=== PATIENT | female | born 1980 | race African-American/Black ===

== ENCOUNTER 2016-10-02 19:57 | Observation (INO) | payer MEDICAID ==
[~2016-10-02] VITALS: Ht 172.7 cm; Wt 65.0 kg
[2016-10-02 20:51] LABS: DAU SCREEN DISCLAIMER
[2016-10-02 21:00] LABS: BLOOD UREA NITROGEN 9 mg/dL (7-18)
[2016-10-02 21:06] LABS: ACETAMINOPHEN < 2 mcg/mL (10-30)
[2016-10-02] MEDS ORDERED: OLANZAPINE 10 MG TABLET PO ONE (22:30)
[2016-10-02] MEDS ORDERED: LORazepam 1MG TABLET PO ONE (22:30)
[2016-10-02] MEDS ORDERED: LORazepam 1MG TABLET ONE (22:39)
[2016-10-02] MEDS ORDERED: POTASSIUM CHLORIDE 20 MEQ TAB.ER.PRT ONE (22:42)
[2016-10-02] MEDS: POTASSIUM CHLORIDE 20 MEQ TAB.ER.PRT PO ONE ×2 (22:43→22:54)
[2016-10-02] MEDS ORDERED: OLANZAPINE 10 MG TABLET PO PRN (23:00)
[2016-10-02] MEDS ORDERED: TRAZODONE 100MG TABLET PO PRN (23:00)
[2016-10-02] MEDS ORDERED: ACETAMINOPHEN 325 MG TABLET PO PRN (23:00)
[2016-10-02 23:40] VITALS: BP 114/75
[2016-10-03 07:35] VITALS: BP 120/70
[2016-10-03] MEDS: PALIPERIDONE 6 MG TAB.ER.24 PO SCH (09:42)
[2016-10-03 19:49] VITALS: BP 112/71
[2016-10-03] MEDS: PANTOPROZOLE 40MG TABLET PO SCH (21:08)
[2016-10-03] MEDS ORDERED: ALBUTEROL SULFATE 2.5 MG/3 ML NPPB PRN (23:00)
[2016-10-04 07:59] VITALS: BP 103/68
[2016-10-04] MEDS: PALIPERIDONE 6 MG TAB.ER.24 PO SCH (08:10)
[2016-10-04] MEDS ORDERED: OLANZAPINE 5 MG TABLET ONE (14:21)
[2016-10-04] MEDS ORDERED: ONDANSETRON ODT 4 MG PO PRN (16:00)
[2016-10-04 19:37] VITALS: BP 107/65
[2016-10-04] MEDS: PANTOPROZOLE 40MG TABLET PO SCH (20:28)
[2016-10-05 08:00] VITALS: BP 97/58
[2016-10-05] MEDS: PALIPERIDONE 6 MG TAB.ER.24 PO SCH (08:57)
[2016-10-05] MEDS ORDERED: LORATADINE 10 MG TABLET PO PRN (10:30)
[2016-10-05] MEDS ORDERED: LORazepam 1MG TABLET PO PRN (12:30)
[2016-10-05 14:35] LABS: BLOOD UREA NITROGEN 11 mg/dL (7-18)
[2016-10-05] MEDS ORDERED: PALI6TAB5 PO (14:47)
== END 2016-10-05 15:40 ==
LOC: ED 22:18 → EDIP 22:19 → ED 22:30 → SUATTDRO 22:37 → 3E 23:41
DX: F20.9 Schizophrenia, unspecified (principal); F23 Brief psychotic disorder; E87.6 Hypokalemia; F43.10 Post-traumatic stress disorder, unspecified; J44.9 Chronic obstructive pulmonary disease, unspecified; F15.10 Other stimulant abuse, uncomplicated; F22 Delusional disorders; Z91.5 Personal history of self-harm
CPT/HCPCS: 36415; 80048; 80307; 80329; 81001; 82040; 84443; 84703; 85025; 87086; 99285; G0378; G0480

== ENCOUNTER 2016-10-13 12:19 | Emergency (ER) | payer MEDICAID ==
[~2016-10-13] VITALS: Ht 167.6 cm; Wt 58.0 kg
[~2016-10-13 12:19] MED LIST: PALI6TAB5 PO
[2016-10-13 12:21] VITALS: BP 107/64
[2016-10-13] MEDS ORDERED: HYDROcodone/APAP 5/325 TABLET ONE (13:26)
[2016-10-13] MEDS ORDERED: HYDROcodone/APAP 5/325 TABLET PO ONE (13:30)
== END 2016-10-13 15:21 | disposition home or self-care (01) ==
LOC: ED 15:15
DX: S62.610A Displaced fracture of proximal phalanx of right index finger, initial encounter for closed fracture (principal); J44.9 Chronic obstructive pulmonary disease, unspecified; F17.200 Nicotine dependence, unspecified, uncomplicated; F12.10 Cannabis abuse, uncomplicated; X58.XXXA Exposure to other specified factors, initial encounter; Y93.89 Activity, other specified; Y92.89 Other specified places as the place of occurrence of the external cause; Y99.8 Other external cause status; Z87.898 Personal history of other specified conditions
CPT/HCPCS: 29130

== ENCOUNTER 2018-06-22 23:56 | Emergency (ER) | payer MEDICAID ==
[~2018-06-22] VITALS: Ht 172.7 cm; Wt 67.9 kg
[2018-06-23] MEDS ORDERED: ACETAMINOPHEN 500 MG TABLET ONE (00:28)
[2018-06-23] MEDS ORDERED: ACETAMINOPHEN 500 MG TABLET PO ONE (00:30)
[2018-06-23 00:32] LABS: BASOPHILS # (AUTO) 0.01 x10^3/uL (0-0.1); BASOPHILS % (AUTO) 0 % (0-1); EOSINOPHILS # (AUTO) 0.09 x10^3/uL (0-0.4); EOSINOPHILS % (AUTO) 1 % (1-7); LYMPHOCYTES # (AUTO) 1.56 x10^3/uL (1-3.4); LYMPHOCYTES % (AUTO) 24 % (22-44); MD NO; MEAN CORPUSCULAR HEMOGLOBIN 29.9 pg (27.0-34.8); MEAN CORPUSCULAR HGB CONC 33.6 g/dL (32.4-35.8); MEAN CORPUSCULAR VOLUME 89.1 fL (80-100); MEAN PLATELET VOLUME 6.5 fL (7.4-10.4); MONOCYTES # (AUTO) 0.44 x10^3/uL (0.2-0.8); MONOCYTES % (AUTO) 7 % (2-9); NEUTROPHILS # (AUTO) 4.41 x10^3/uL (1.8-6.8); NEUTROPHILS % (AUTO) 68 % (42-75); PLATELET COUNT 340 x10^3/uL (130-400); RED BLOOD COUNT 4.35 x10^6/uL (3.82-5.3); RED CELL DISTRIBUTION WIDTH 13.5 % (9.6-15.2)
--- NOTE | 2018-06-23 00:35 | NUR ---
RECEIVED REPORT FROM LOLA UNDERWOOD(BREAK RN) TO ASSUME PT. CARE AT THIS TIME.
--- NOTE | 2018-06-23 00:38 | NUR ---
PT. SITTING UP ON GURNEY WITH FAMILY AT BS. PT. NOT ANSWERING QUESTIONS ASKED BY THIS RN; DIFFICULT ASSESSMENT. DISCUSSED WITH DR. ROOT PT. REQUEST FOR ICE WATER; FOR NOW PT. TO BE NPO AND PT./FAMILY UPDATED ON THIS. URINE SAMPLE HAS BEEN REQUESTED FROM PT., UNABLE TO PROVIDE AT THIS TIME. CALL LIGHT IN REACH. ALL SAFETY MEASURES OBSERVED.
[2018-06-23 00:45] LABS: ANION GAP 5 mmol/L (5-15); CALCIUM 8.3 mg/dL (8.5-10.1); CHLORIDE 111 mmol/L (98-107); CREATININE 0.93 mg/dL (0.55-1.02)
--- NOTE | 2018-06-23 01:00 | NUR ---
PER DR. ROOT OK FOR PT. TO HAVE WATER IF PREG NEGATIVE; PT. GIVEN WATER. PT. AMBULATED TO AND WAS ABLE TO PROVIDE CLEAN CATCH URINE SAMPLE; SENT TO LAB. BLANKETS PROVIDED. PT. REPORTS SHE CAME TO [facility] AFTER "I PASSED A LARGE CLOT AND THEN I GOT VERY LIGHT-HEADED AND FELT LIKE I WAS GOING TO PASS OUT" REPORTS 12/26 LOWER ABD CRAMPING "IT FEELS LIKE THERE IS A VICE TUGBOAT DISPATCHER RIGHT HERE"(GRABBING LOWER ABD). CALL LIGHT IN REACH.
[2018-06-23 01:10] LABS: CULTURE INDICATED? YES; MICROSCOPIC INDICATED
[2018-06-23] MEDS ORDERED: IBUPROFEN 600 MG TABLET ONE (01:55)
[2018-06-23 01:59] VITALS: BP 105/71
[2018-06-23] MEDS ORDERED: IBUPROFEN 600 MG TABLET PO ONE (02:00)
== END 2018-06-23 02:01 | disposition home or self-care (01) ==
LOC: ED 06-23 01:55
DX: N93.8 Other specified abnormal uterine and vaginal bleeding (principal); N30.01 Acute cystitis with hematuria; J44.9 Chronic obstructive pulmonary disease, unspecified; F17.200 Nicotine dependence, unspecified, uncomplicated; Z85.038 Personal history of other malignant neoplasm of large intestine
CPT/HCPCS: 36415; 80048; 81001; 84703; 85025; 87086; 99283

== ENCOUNTER 2018-08-23 08:03 | Emergency (ER) | payer MEDICAID ==
[~2018-08-23] VITALS: Ht 172.7 cm; Wt 64.0 kg
[2018-08-23 08:10] VITALS: BP 100/63
[2018-08-23] MEDS ORDERED: HYDROcodone/APAP 5/325 TABLET ONE (08:25)
[2018-08-23] MEDS ORDERED: HYDROcodone/APAP 5/325 TABLET PO ONE (08:30)
== END 2018-08-23 08:56 | disposition home or self-care (01) ==
LOC: ED 08:54
DX: K08.89 Other specified disorders of teeth and supporting structures (principal); J44.9 Chronic obstructive pulmonary disease, unspecified
CPT/HCPCS: 99283